=== PATIENT | male | born 1980 | race Caucasian/White ===

== ENCOUNTER 2016-08-11 18:52 | Emergency (ER) | payer OTHER ==
[2016-08-11 19:54] VITALS: BP 140/78
[2016-08-11] MEDS ORDERED: Cyclobenzaprine 10 MG Tab PO ONE (19:58)
[2016-08-11] MEDS ORDERED: Ketorolac 60 MG/2 ML SDV IM ONE (19:58)
[2016-08-11] MEDS ORDERED: HYDROmorphone 0.5 MG/0.5 ML Syringe IM ONE (19:59)
[2016-08-11] MEDS ORDERED: Ondansetron 4 MG Tab.DIS PO ONE (20:18)
--- NOTE | 2016-08-11 20:22 | EDM.PDOC ---
[id number] Complaint: MUSCLE SPASMS/PINCHED NERVE IN NECK Time Seen by Provider: 08/11/16 19:50 Source of Information: Reports: Patient History Limitations: Reports: No Limitations - History of Present Illness INITIAL COMMENTS - FREE TEXT/NARRATIVE: pt has a history of recurrent pain in the left side of his neck. He has pain by the left shoulder blade and in the post cervical area. He has had recurrent pain over the past several years from old injuries. He has not had an acute injury. This all of a sudden tightened up today with no trauma. Onset: Today Duration: Hour(s): Location: Reports: Neck Associated Symptoms: Reports: No Other Symptoms left shoulder Pain Score (Numeric/FACES): 9 - Related Data Allergies Allergy/AdvReac Type Severity Reaction Status Date / Time Penicillins Allergy Airway Verified 08/11/16 19:59 Tightness Home Meds: Home Meds NK [No Known Home Meds] 08/11/16 [History] Past Medical History Musculoskeletal History: Reports: Fracture, Other (See Below) Other Musculoskeletal History: muscle tension. left shoulder dislocation. left rib seperation Neurological History: Reports: Concussion Psychiatric History: Reports: ADHD - Infectious Disease History Infectious Disease History: Reports: Chicken Pox - Past Surgical History GI Surgical History: Reports: Appendectomy, Hernia Repair/Other, Small Bowel, Other (See Below) Social & Family History - Tobacco Use Smoking Status *Q: Never Smoker - Recreational Drug Use Recreational Drug Use: No Review of Systems - Review of Systems Review Of Systems: See Below Constitutional: Reports: No Symptoms Eyes: Reports: No Symptoms Ears: Reports: No Symptoms Nose: Reports: No Symptoms Mouth/Throat: Reports: No Symptoms Respiratory: Reports: No Symptoms Cardiovascular: Reports: No Symptoms GI/Abdominal: Reports: No Symptoms Genitourinary: Reports: No Symptoms Musculoskeletal: Reports: Other (pain in the post cervical area. ) Skin: Reports: No Symptoms ED EXAM, GENERAL - Physical Exam Exam: See Below Free Text/Narrative:: pt has tenderness in the post left cervical area. He has tightness and alot of muscle spasm. Exam Limited By: No Limitations General Appearance: Alert, Anxious, Moderate Distress Ears: Normal TMs Nose: Normal Inspection Throat/Mouth: Normal Inspection Head: Atraumatic Neck: Tender Lateral, Other (pt has alot of tenderness in the left lateral area. ) Respiratory/Chest: No Respiratory Distress Cardiovascular: Regular Rate, Rhythm GI/Abdominal: Soft, Non-Tender Back Exam: Normal Inspection Extremities: Normal Inspection Neurological: Alert, Oriented, Normal Cognition Psychiatric: Anxious Course - Vital Signs Last Recorded V/S: Last Vital Signs Temp 35.4 C 08/11/16 19:52 Pulse 59 L 08/11/16 19:52 Resp 16 08/11/16 19:52 BP 140/78 08/11/16 19:52 Pulse Ox 100 08/11/16 19:52 - Orders/Labs/Meds Meds: Medications Discontinued Medications Generic Name Dose Route Start Last Admin Trade Name Freq PRN Reason Stop Dose Admin Cyclobenzaprine HCl 10 mg 08/11/16 19:58 08/11/16 20:24 Flexeril PO 08/11/16 19:59 10 mg ONETIME ONE Administration Hydromorphone HCl 0.5 mg 08/11/16 19:59 08/11/16 20:25 Dilaudid IM 08/11/16 20:00 0.5 mg ONETIME ONE Administration Ketorolac Tromethamine 60 mg 08/11/16 19:58 08/11/16 20:20 Toradol IM 08/11/16 19:59 60 mg ONETIME ONE Administration Ondansetron HCl 4 mg 08/11/16 20:18 08/11/16 20:30 Zofran Odt PO 08/11/16 20:19 4 mg ONETIME ONE Administration - Re-Assessments/Exams Free Text/Narrative Re-Assessment/Exam: 08/11/16 22:03 pt was given torodol 60mg im and dilaudid .5 im plus flexeril 10mg He was much more comfortable. . Departure - Departure Time of Disposition: 22:04 Disposition: Home, Self-Care 01 Condition: Fair Clinical Impression: Cervical paraspinal muscle spasm - Discharge Information Instructions: Muscle Cramps and Spasms, [id number] Referrals: PCP,None [Primary Care Provider] - Forms: ED Department Discharge Care Plan Goals: moist warm heat and ice to the area, flexeril 10 mg bid, norco 5/325 q6h prn for severe pain, motrin 600mg tid, possible Mri of the cervical area with his own provider if he continues to have problems.
== END 2016-08-11 21:36 | disposition home or self-care (01) ==
LOC: JP.ED 18:52
DX: M62.838 Other muscle spasm (principal); F90.9 Attention-deficit hyperactivity disorder, unspecified type; Z90.49 Acquired absence of other specified parts of digestive tract; Z98.890 Other specified postprocedural states; Z88.0 Allergy status to penicillin
CPT/HCPCS: 96372; 99283; A9270; J1170; J1885